=== PATIENT | male | born 1985 | race Caucasian/White ===

== ENCOUNTER 2021-01-06 22:13 | Emergency (ER) | payer OTHER ==
[2021-01-07] MEDS ORDERED: IBUPROFEN600 MG PO (00:26)
== END 2021-01-07 00:29 | disposition home or self-care (01) ==
LOC: ER1 22:13
DX: S93.401A Sprain of unspecified ligament of right ankle, initial encounter (principal); S93.601A Unspecified sprain of right foot, initial encounter; Y30.XXXA Falling, jumping or pushed from a high place, undetermined intent, initial encounter
CPT/HCPCS: 73610; 73630; 99283

== ENCOUNTER 2022-04-13 13:56 | Emergency (ER) | payer SELFPAY ==
[~2022-04-13 13:56] MED LIST: IBUPROFEN600 MG PO
[2022-04-13 17:56] LABS: HEMOGLOBIN 13.9 gm/dl (14.0-17.5); RED BLOOD COUNT 4.32 M/UL (4.20-5.50); WHITE BLOOD COUNT 8.9 K/UL (4.5-11.0)
[2022-04-13 18:22] LABS: BUN/CREATININE RATIO 8 (0-10)
[2022-04-13] MEDS ORDERED: AMOXICILLIN500 MG PO (18:37)
== END 2022-04-13 20:25 | disposition home or self-care (01) ==
LOC: ER1 13:56
PROVIDERS: Emergency Medicine
DX: J02.0 Streptococcal pharyngitis (principal); R19.7 Diarrhea, unspecified; Z20.822 Contact with and (suspected) exposure to COVID-19
CPT/HCPCS: 0240U; 71045; 80053; 81001; 85025; 87040; 87081; 87880; 96374; 99283; J0696